=== PATIENT | male | born 2005 | race Caucasian/White ===

== ENCOUNTER 2023-12-19 11:51 | Emergency (ER) | payer OTHER ==
[2023-12-19 11:57] VITALS: BP 157/93; BMI 30.3
[2023-12-19 11:58] VITALS: PULSE 99; RESP 18; TEMP 99.3
== END 2023-12-19 13:41 | disposition home or self-care (01) ==
LOC: JERFT 11:51
DX: M25.572 Pain in left ankle and joints of left foot (principal); S93.402A Sprain of unspecified ligament of left ankle, initial encounter; R22.42 Localized swelling, mass and lump, left lower limb; X50.1XXA Overexertion from prolonged static or awkward postures, initial encounter; Y93.01 Activity, walking, marching and hiking
CPT/HCPCS: 73610-TC-LT-FY; 99283-25

== ENCOUNTER 2024-05-14 17:28 | Emergency (ER) | payer OTHER ==
[2024-05-14 17:34] VITALS: BP 152/81; PULSE 91; RESP 18; TEMP 98.6; BMI 30.9
[2024-05-14] MEDS ORDERED: IBUPROFEN 400 MG TABLET (FP) PO ONE (18:12)
[2024-05-14] MEDS ORDERED: IBUPROFEN 600 MG TABLET (FP) PO ONE (18:12)
[2024-05-14] MEDS: IBUPROFEN 600 MG TABLET (FP) PO ONE (18:17)
== END 2024-05-14 18:56 | disposition home or self-care (01) ==
LOC: JERFT 17:28
DX: M25.571 Pain in right ankle and joints of right foot (principal); G89.29 Other chronic pain
CPT/HCPCS: 73610-TC-RT-FY; 73630-TC-RT-FY; 99283-25